=== PATIENT | female | born 1940 | race Caucasian/White ===

== ENCOUNTER → 2017-08-12 15:40 | Outpatient (CLI) | payer MEDICARE, BC ==
[2015-01-20 10:24] VITALS: BMI 29.9
[~2017-08-12 15:40] MED LIST: BAYER CHEWABLE81 MG PO; CORDARONE200 MG PO; COREG 3.1253.125 MG PO; LYRICA75 MG PO; PACERONE400 MG PO; PRAVACHOL40 MG PO; SYNTHROID50 MCG PO
== END | disposition home or self-care (01) ==
LOC: D.MAMMO 07-15 14:00
DX: Z12.31 Encounter for screening mammogram for malignant neoplasm of breast (principal)

== ENCOUNTER 2018-04-14 12:36 | Observation (INO) | payer BC ==
[~2018-04-14] VITALS: Ht 170.2 cm; Wt 76.8 kg
--- NOTE | ~2018-04-14 | EC ---
PATIENT:TABATHA PERRY DATE OF SERVICE: 04/14/18 SEX: F MEDICAL RECORD: [id number] DATE OF : 40 LOCATION:D.M2 D.212 AGE OF PATIENT: 77 ADMISSION DATE: 04/14/18 REFERRING PHYSICIAN: INTERPRETING PHYSICIAN: RADHA PORTILLO MD ECHOCARDIOGRAM REPORT ECHO CHARGES 4 ECHO COMPLETE Date: 04/15/18 CLINICAL DIAGNOSIS: POSSIBLE TIA/SYNCOPE ECHOCARDIOGRAPHIC MEASUREMENTS (adult normal given) AC root (d.<3.7cm) 3.1 cm LV Septum d (<1.2 cm> 1.6 cm Valve Excursion 1.7 cm LV Septum (systole) 2.0 cm Left Atria (s.<4.0cm> 3.6 cm LVPW d(<1.2cm) 1.3 cm RV (d.<2.3cm) 3.3 cm LVPW (sytole) 2.0 cm LV diastole(<5.6CM) 4.9 cm MV E-F(>70mm/sec) cm LV systole 3.1 cm LVOT Diameter 1.8 cm MV exc.(>10mm) cm Est.ejection fraction (50-75%) % DOPPLER: LVIT cm/sec A 69.0 cm/sec E 84.0 cm/sec LA cm/sec RVSP 30.0 mmHg LVOT 64.0 cm/sec AOP1/2T 875.0m/s Asc. Ao 119 cm/sec RVOT 46.0 cm/sec RA cm/sec PA 63.0 cm/sec AV Gradient Peak 5.6 mmHg AV Mean 2.9 mmHg AV Area 1.4 cm MV Gradient Peak 3.6 mmHg MV Mean 1.3 mmHg MV Area cm COMMENTS: Registered Nurse Practitioner: 1 CAROLYNN BELTRANOE Timber Packer: 3 Dr. Nance TAPE# PACS Pericardial Effusion N DATE OF SERVICE: Adequate 2D echo, color flow, spectral Doppler, and M-mode No LVH. LV internal dimensions are normal. LV is mildly globally hypokinetic and reduced EF, estimated EF 30% to 35%. Aortic valve is tricuspid. No evidence of stenosis by Doppler interrogation. Left atrium normal at 3.6 cm. Mitral valve shows no prolapse but [id number] MR. Right-sided chamber size grossly normal. Mild TR. ECHOCARDIOGRAM REPORT [id number] TABATHA PERRY TRANSINT:[id number] Voice Confirmation ID: [id number] DOCUMENT ID: [id number] RADHA PORTILLO MD at 1023 CC: [id number] DICTATION DATE: 04/15/18 164 OPERATIONS LEADER: 04/16/18 0046 ADM IN [facility] [address] [place] [address]
--- NOTE | ~2018-04-14 | CN ---
PATIENT NAME:TABATHA PERRY MEDICAL RECORD: [id number] : 40 LOCATION:D. D.2 ADMIT DATE: 04/14/18 ACCOUNT: [id number] CONSULTING PHYSICIAN: RADHA PORTILLO MD REFERRING PHYSICIAN: ANNA AYOUB DO DATE OF CONSULTATION: 04/15/2018 HISTORY OF PRESENT ILLNESS: A 77-year-old female with no known history of vascular disease. She has a history of nonischemic cardiomyopathy, status post ICD placement by Dr. Ragland, last checked in October. Apparently was leaning to her right when playing tennis. She does have history of right clavicle injury. No other symptoms, chest pain, palpitations. She was admitted for possible TIA. Noted to have elevated cardiac enzymes; however, this is in the face of elevated creatinine, which is improving. We are asked to see her concerning her cardiovascular status. PAST MEDICAL HISTORY: Otherwise includes: 1. History of hypothyroidism, replacement. 2. Dyslipidemia. 3. Nonischemic cardiomyopathy. ALLERGIES: None known. MEDICATIONS: Include amiodarone 200 mg p.o. daily, Coreg 3.125 b.i.d., pravastatin 40 every day, aspirin 81 every day, Synthroid 50 mcg every day, Evista 60 mg daily. SOCIAL HISTORY: Nonsmoker, nondrinker. Stays quite active including playing tennis. Easily takes care of all of her ADLs. REVIEW OF SYSTEMS: The patient reports easy bruising but reports no swollen glands. The patient reports no fever, no night sweats, no significant weight gain, no significant weight loss. No significant exercise tolerance. The patient reports no dry eyes, no irritation, no vision change. Patient reports no difficulty hearing and no ear pain. Patient reports no frequent nose bleeds or nose and sinus problems. Patient reports on arm pain on exertion. No shortness of breath while lying down. No history of heart murmur. Patient reports no cough, no wheezing or coughing up blood. Patient reports no abdominal pain, no vomiting. Normal appetite. No diarrhea and not vomiting blood. No nausea and no constipation. Patient reports no incontinence. No difficulty urinating. No hematuria. No increased frequency. Patient reports no muscle aches. No weakness, no arthralgias, no back pain. No swelling of the extremities. Patient reports no abnormal mole, no jaundice, no rashes. Reports no loss of consciousness. No weakness and no numbness. No seizures, dizziness, or headaches. The patient reports no depression, no sleep disturbance, feeling safe in a relationship and no alcohol abuse. Patient reports on fatigue. Reports no runny nose or sinus pressure. No itching, no hives, and no frequent sneezing. PHYSICAL EXAMINATION: GENERAL: Pleasant female, in no acute distress. VITAL SIGNS: Blood pressure 137/63, pulse 63 and regular. HEENT: Normocephalic and atraumatic. NECK: No bruits are noted. HEART: Regular. No gallops are noted. CONSULT REPORT [id number] TABATHA PERRY LUNGS: Good air excursion. ABDOMEN: Soft and nontender. EXTREMITIES: Pulses 2+. There is no edema. NEUROLOGIC: Grossly intact. DIAGNOSTIC DATA: ECG shows p-synchronous pacing without acute ST-T changes. IMPRESSION: Suspect cardiac enzymes elevated in the face of decreased clearance secondary to increased creatinine. These are trending down appropriately with hydration, improvement in creatinine. Check echocardiographic study. ICD will be interrogated to make sure no specific dysrhythmias, etc. No contraindication to discharge from a cardiovascular standpoint after ICD interrogation. TRANSINT:[id number] Voice Confirmation ID: [id number] DOCUMENT ID: [id number] RADHA PORTILLO MD at 1023 CC: [id number] DICTATION DATE: 04/15/18 1023 NEWS ANCHOR: 04/15/18 [address] [facility] [address] [place] [address]
--- NOTE | ~2018-04-14 | DS ---
PATIENT:TABATHA PERRY :40 MEDICAL RECORD: [id number] DISCHARGE SUMMARY ADMISSION DATE: 04/14/18 DISCHARGE DATE: 04/16/18 DATE OF ADMISSION: 04/14/2018 DATE OF DISCHARGE: 04/16/2018 ADMISSION DIAGNOSES: Transient ischemic attack symptoms, history of coronary artery disease with elevation in cardiac enzymes, and pacemaker. DISCHARGE DIAGNOSES: Brief transient right-sided weakness, transient elevation in cardiac enzymes, and pacemaker. CONSULTS: Alden Nance MD, cardiology. HOSPITAL COURSE: The patient was admitted. At time of admission, symptoms had completely resolved. She had a transient bump in her cardiac enzymes. She underwent interrogation of her pacemaker and this was negative. She was evaluated and cleared for discharge by cardiology. The patient is anxious to be discharged. She will follow up with her last dipper, Dr. Ragland. She will follow up with her primary care physician, Dr. Snyder. She understands to restrict activity until cleared by her last dipper as outpatient. She understands to return to hospital with resumption of symptoms. She also had a CT of her head which was negative and a negative carotid ultrasound. PHYSICAL EXAMINATION: VITAL SIGNS: On discharge, temperature 97.9, blood pressure is 117/65, heart rate 63, respirations 18, and O2 sat is 95% on room air. GENERAL: She is ambulating independently. No symptoms. HEART: Regular rate and rhythm. LUNGS: Clear. ABDOMEN: Soft. EXTREMITIES: Present times 4. NEUROLOGIC: Intact. The patient is discharged to home in stable and improved condition. See chart for further details. Again, she will follow up with her PCP, Dr. Snyder, within 10 days; and follow up with her last dipper, Dr. Ragland, with clearance prior to resuming exertional activity. TRANSINT:[id number] Voice Confirmation ID: [id number] DOCUMENT ID: [id number] ANNA AYOUB DO at 0926 CC: [id number] DICTATION DATE: 04/16/18 1118 PROCESS DEVELOPMENT CHEMIST: 04/16/18 1337 DIS IN 04/16/18 [facility] [address] [place] [address]
--- NOTE | ~2018-04-14 | HP ---
PATIENT: TABATHA PERRY MEDICAL RECORD: [id number] ACCOUNT: [id number] LOCATION:[address] : 40 ADMISSION DATE: 04/14/18 PCP: No PCP HISTORY AND PHYSICAL EXAMINATION HISTORY OF PRESENT ILLNESS: A 77-year-old female who was playing tennis last night, began to lift to the right side, significantly noticeable by the other members of her alliance party. They called the skid road worker at the [facility] to evaluate her. Upon their exam, they brought her to the ER for evaluation. Symptoms had significantly improved or resolved at the time of my arrival. CT of the head was obtained, which was negative. Vital signs were normal. Cardiac enzymes were elevated. CK-MB initially was 7.3. CK 384. Troponin is 0.974. She was not significantly dehydrated based on lab results and urine concentration. Specific gravity was 1.005 in her urine. BUN 17, creatinine of 1.4. The patient is admitted. Enzymes cycled. ADMISSION DIAGNOSES: Transient ischemic attack type symptoms - resolved by the time of presentation to the Emergency Department, elevated cardiac enzymes, history of pacemaker placement. The patient is admitted. Cardiology consulted. Interrogation of pacemaker pending. We will repeat additional set of enzymes. REVIEW OF SYSTEMS: Significant as above. GENERAL: No acute change in weight or appetite. HEENT: No cephalalgia, visual changes, tinnitus, epistaxis, or dysphagia. CARDIOVASCULAR: Denies present chest pain. PULMONARY: Denies hemoptysis, denies night sweats, denies shortness of breath. GASTROINTESTINAL: Denies hematemesis, hematochezia or melena. GENITOURINARY: Denies dysuria. MUSCULOSKELETAL: No acute changes. NEUROLOGIC: No present focal deficits. PHYSICAL EXAMINATION: VITAL SIGNS: Temp 97.9, blood pressure 137/63, heart rate 63, respirations 16, O2 sats 98% on room air. GENERAL: Alert and oriented, no present distress. HEENT: Normocephalic, atraumatic. Eyes: Pupils are equally round and reactive to light and accommodation. Extraocular muscles intact. Conjunctivae not injected. Ears: Canals patent, TMs are intact. Nose: Nares patent without drainage. Throat: No erythema, no exudates. NECK: Supple. No lymphadenopathy. HEART: Regular rate and rhythm. No S3, S4, no rub. LUNGS: Clear to auscultation bilaterally. Breathing is unlabored. ABDOMEN: Soft, nontender. Bowel sounds all 4 quadrants. EXTREMITIES: Present times 4. NEUROLOGIC: Cranial nerves II-XII intact. The patient is somewhat confused. HISTORY AND PHYSICAL [id number] TABATHA PERRY Historically, I do not know if this is new or if this is her baseline. LABORATORY DATA: EKG shows electronic atrial pacemaker, vent rate of 61, nonspecific T-wave abnormality. Again, CT of the head, no acute intracranial process. Chest x-ray: No acute abnormality. Carotid Doppler, no significant flow-limiting stenosis in the carotid arterial system. ASSESSMENT AND PLAN: Transient ischemic attack symptom, cardiac history with elevation in cardiac enzymes and pacemaker. The patient will continue on telemetry. Awaiting pacemaker interrogation. Will repeat labs and cardiac enzymes in a.m. Physical therapy evaluation and ambulation, evaluate for any deficits. Supportive care. That no intervention is warranted at this time. We will recommend outpatient cardiac stress test. Discussed with the patient. TRANSINT:[id number] Voice Confirmation ID: [id number] DOCUMENT ID: [id number] ANNA AYOUB DO at 1030 CC: [id number] DICTATION DATE: 04/15/18 1225 FOREIGN EXCHANGE DEALER: 04/15/18 2219 ADM IN [facility] [address] [place] [id number]
[2018-04-14] MEDS ORDERED: EVISTA60 MG PO (12:45)
[2018-04-14 13:32] LABS: BASOPHILS 0.3 % (0-2); EOSINOPHILS 0.3 % (0-7); HEMATOCRIT 36.1 % (36.0-48.0); HEMOGLOBIN 11.9 g/dL (12-16); IMMATURE GRANULOCYTES 0.2 % (0-5); LYMPHOCYTES 20.8 % (15-50); MCH 30.4 pg (26.0-34.0); MCV 92.3 fL (80.0-100.0); MONOCYTES 8.7 % (2-11); NEUTROPHILS 69.7 % (40-80); PLATELET COUNT 178 10x3/uL (130-400); RBC 3.91 10x6/uL (4.00-5.40); RDW 14.4 % (11.5-14.5)
[2018-04-14 13:40] LABS: APTT 25.1 SECONDS (22.8-39.4); INR 1.34 (0.85-1.17); PROTIME 16.1 SECONDS (11.6-15.0)
[2018-04-14 13:43] LABS: ALBUMIN 3.1 g/dL (3.4-5.0); ANION GAP 13.5 mmol/L (8-16); BILIRUBIN - TOTAL 0.87 mg/dL (0.2-1.3); CALCIUM 8.1 mg/dL (8.5-10.1); CARBON DIOXIDE 23.4 mmol/L (21.0-32.0); CREATININE - SERUM 1.4 mg/dL (0.6-1.3); POTASSIUM - SERUM 3.9 mmol/L (3.5-5.1)
[2018-04-14 14:00] VITALS: BP 127/57
[2018-04-14 14:21] LABS: APPEARANCE HAZY (CLEAR); BACTERIA FEW /hpf (NONE SEEN); BILIRUBIN NEGATIVE (NEGATIVE); COLOR YELLOW (YELLOW); EPITHELIAL CELLS OCC /hpf (0-5); GLUCOSE NEGATIVE (NEGATIVE); KETONE NEGATIVE (NEGATIVE); NITRITE NEGATIVE (NEGATIVE); PROTEIN NEGATIVE (NEGATIVE); RED CELLS - URINE 0-5 /hpf (0-5); SPECIFIC GRAVITY 1.005 (1.005-1.020); UROBILINOGEN NORMAL (NORMAL); WHITE CELLS - URINE RARE /hpf (0-5)
[2018-04-14 15:00] VITALS: BP 149/54
[2018-04-14 15:09] LABS: CKMB 5.4 U/L (0.0-3.6); CREATINE KINASE 378 UL (21-215); PRO BNP 815 pg/mL (0-450)
[2018-04-14 15:12] LABS: TROPONIN-I 0.157 ng/mL (0.000-0.060)
[2018-04-14 16:00] VITALS: BP 141/57
[2018-04-14 17:00] VITALS: BP 141/67
[2018-04-14 21:28] LABS: CKMB 7.3 U/L (0.0-3.6); CREATINE KINASE 384 UL (21-215)
[2018-04-14 21:33] LABS: TROPONIN-I 0.974 ng/mL (0.000-0.060)
[2018-04-14 21:53] VITALS: BP 102/42
[2018-04-14] MEDS ORDERED: ASPIRIN81 MG PO (22:25)
[2018-04-14 22:41] VITALS: BP 102/42; Ht 170.2 cm; Wt 76.8 kg
[2018-04-15 00:54] VITALS: BP 150/45
[2018-04-15 03:47] LABS: CKMB 5.7 U/L (0.0-3.6); CREATINE KINASE 315 UL (21-215)
[2018-04-15 05:25] VITALS: BP 114/58
[2018-04-15 08:54] VITALS: BP 137/63
[2018-04-15 09:04] LABS: CREATINE KINASE 315 UL (21-215)
[2018-04-15 09:44] LABS: CKMB 5.9 U/L (0.0-3.6)
[2018-04-15 09:45] LABS: TROPONIN-I 0.704 ng/mL (0.000-0.060)
[2018-04-15 12:36] VITALS: BP 131/63
[2018-04-15 16:25] VITALS: BP 139/56
[2018-04-15 20:30] VITALS: BP 122/69
[2018-04-16 00:30] VITALS: BP 131/66
[2018-04-16 04:30] VITALS: BP 128/60
[2018-04-16 05:27] LABS: BASOPHILS 0.5 % (0-2); EOSINOPHILS 1.2 % (0-7); HEMATOCRIT 37.4 % (36.0-48.0); HEMOGLOBIN 12.3 g/dL (12-16); IMMATURE GRANULOCYTES 0.2 % (0-5); LYMPHOCYTES 27.6 % (15-50); MCH 30.7 pg (26.0-34.0); MCHC 32.9 g/dL (31.0-37.0); MCV 93.3 fL (80.0-100.0); MEAN PLATELET VOLUME 11.6 fL (7.4-10.4); MONOCYTES 9.4 % (2-11); NEUTROPHILS 61.1 % (40-80); PLATELET COUNT 199 10x3/uL (130-400); RBC 4.01 10x6/uL (4.00-5.40); RDW 14.5 % (11.5-14.5); WBC 5.9 10x3/uL (4.8-10.8)
[2018-04-16 06:16] LABS: CALCIUM 8.1 mg/dL (8.5-10.1); CARBON DIOXIDE 25.7 mmol/L (21.0-32.0); CHLORIDE - SERUM 110 mmol/L (98-107); CHOL - HDL RATIO 2.6 ratio (2.3-4.1); CHOLESTEROL, TOTAL 140 mg/dL (0-200); CKMB 4.1 U/L (0.0-3.6); CREATINE KINASE 278 UL (21-215); CREATININE - SERUM 1.1 mg/dL (0.6-1.3); GLUCOSE 101 mg/dL (74-106); HDL CHOLESTEROL 53 mg/dL (32-96); LDL CHOLESTEROL 69 mg/dL (0-100); LDL-HDL RATIO 1.3 ratio (1.5-3.5); MAGNESIUM - SERUM 2.1 mg/dL (1.8-2.4); PHOSPHOROUS 3.6 mg/dL (2.5-4.9); POTASSIUM - SERUM 3.9 mmol/L (3.5-5.1); SODIUM 144 mmol/L (136-145); THYROID STIMULATING HORMONE 4.91 uIU/mL (0.36-3.74); TRIGLYCERIDE 94 mg/dL (30-200); eGFR NON AFRICAN AMERICAN 51 mL/min (90-120)
[2018-04-16 06:19] LABS: CALC OSMOLALITY 286 mosm/kg (275-300); TROPONIN-I 0.713 ng/mL (0.000-0.060); UREA NITROGEN 12 mg/dL (7-18)
[2018-04-16 08:37] VITALS: BP 126/54
[2018-04-16 11:16] VITALS: BP 117/65
== END 2018-04-16 13:00 | disposition home or self-care (01) ==
LOC: D.ER 12:36 → D.M2 18:17 → D.EDHOLD 18:17 → OBSVTIME 18:17 → D.M2 19:04
PROVIDERS: Emergency Medicine; Family Medicine
DX: G81.91 Hemiplegia, unspecified affecting right dominant side (principal); R79.89 Other specified abnormal findings of blood chemistry; I25.10 Atherosclerotic heart disease of native coronary artery without angina pectoris; Z95.0 Presence of cardiac pacemaker; E03.9 Hypothyroidism, unspecified; E78.5 Hyperlipidemia, unspecified; I42.9 Cardiomyopathy, unspecified